=== PATIENT | female | born 1950 | race Caucasian/White ===

== ENCOUNTER → 2018-10-21 | Outpatient (CLI) | payer OTHER, MEDICARE | LOC: FIMAGING 13:27 | PROVIDERS: ATTEND Orthopaedic Surgery | DX: Z01.818 Encounter for other preprocedural examination (principal); M16.12 Unilateral primary osteoarthritis, left hip; M17.0 Bilateral primary osteoarthritis of knee ==

== ENCOUNTER 2018-11-06 08:09 | Inpatient (IN) | payer OTHER, MEDICARE ==
[~2018-11-06 08:09] MED LIST: BUPIVACAINE/EPI 0.5% 30 ML SDV ONE; POVIDONE-IODINE 20 ML in SODIUM CL IRRIG SOLUTION 500 ML IRR ONE; ROPIVACAINE 0.2% 80 MG, EPINEPHrine 0.2 MG, KETOROLAC TROMETHAMINE 30 MG in SYRINGE 0 ML IU ONE; TRANEXAMIC ACID 1,000 MG in NS 100 ML IV ONE
[2018-11-06] MEDS ORDERED: DEXAMETHASONE 4 MG/ML VIAL IVP ONE (08:27)
[2018-11-06] MEDS ORDERED: FAMOTIDINE 20 MG TAB PO ONE (08:27)
[2018-11-06] MEDS ORDERED: ceFAZolin 2 GM/DEXTROSE 100 ML IV ONE (08:27)
[2018-11-06] MEDS ORDERED: ACETAMINOPHEN 325 MG TAB PO ONE (08:27)
[2018-11-06] MEDS ORDERED: LR 1,000 ML IV ONE (08:28)
--- NOTE | 2018-11-06 09:36 | PDANEPAE ---
ANE History of Present Illness OA here for L LUNA ANE Past Medical History - Cardiovascular History Hx Hypertension: No Hx Arrhythmias: No Hx Chest Pain: No Hx Coronary Artery / Peripheral Vascular Disease: No Hx CHF / Valvular Disease: No Hx Palpitations: No - Pulmonary History Hx COPD: No Hx Asthma/Reactive Airway Disease: Yes Hx Recent Upper Respiratory Infection: No Hx Oxygen in Use at Home: No Hx Sleep Apnea: No Sleep Apnea Screening Result - Last Documented: Negative Pulmonary History Comment: ASTHMA TRIGGERS ARE URI. RECENT COUGH TREATED WITH ANTIBIOTIC FINISHED 10/16/18. ALLERGIC TO CATS AND DOG - Neurologic History Hx Cerebrovascular Accident: No Hx Seizures: No Hx Dementia: No - Endocrine History Hx Diabetes: No - Renal History Hx Renal Disorders: No - Liver History Hx Hepatic Disorders: No - Neurological & Psychiatric Hx Hx Neurological and Psychiatric Disorders: Yes Neurological / Psychiatric History Comment: DEPRESSION - Cancer History Hx Cancer: No - Congenital Disorder History Hx Congenital Disorders: No - GI History Hx Gastrointestinal Disorders: No - Other Health History Other Health History: UPPER FRONT TEETH HAVE VENEERS. OSTEOARTHRITIS - Chronic Pain History Chronic Pain: Yes (LT HIP) - Surgical History Prior Surgeries: TAMIKO BREAST AUGMENTATION ANE Review of Systems Review of Systems: - Exercise capacity METS (RN): 4 METS ANE Patient History - Allergies Allergies/Adverse Reactions: No Known Allergies Allergy (Verified 10/20/18 15:09) - Home Medications Home Medications: Venlafaxine Xr [Effexor Xr 75MG (*)] 75 mg PO DAILY 10/20/18 [Last Taken 07:30] lamoTRIgine [LamICTAL 100 MG (*)] 150 mg PO DAILY 10/20/18 [Last Taken 11/06/18 07:30] Albuterol [Proventil Inhaler HFA (*)] 1 - 2 puffs IH Q4H PRN 10/23/18 [Last Taken 1 Day Ago ~11/05/18] Beclomethasone Qvar 80 [Qvar 80 Redihaler (*)] 1 inh IH BID 10/23/18 [Last Taken 11/06/18 07:30] Herbals/Supplements -Info Only 1 each PO DAILY 10/23/18 [Last Taken 1 Week Ago ~ 10/30/18] Ibuprofen [Motrin (*)] 200 mg PO DAILY PRN 10/23/18 [Last Taken 2 Months Ago ~] Ascorbic Acid [Vitamin C 500 mg (*)] 500 mg PO DAILY 11/06/18 [Last Taken 1 Week Ago ~10/30/18] Cholecalciferol Vit D3 [Vitamin D3 (*)] 1,000 units PO DAILY 11/06/18 [Last Taken 1 Week Ago ~10/30/18] Vitamin B Complex [Vitamin B Complex (OTC)] 1 each PO DAILY 11/06/18 [Last Taken 1 Week Ago ~10/30/18] - NPO status NPO Status: no food or drink >8 hours NPO Since - Liquids (Date): 11/05/18 NPO Since - Liquids (Time): 22:00 NPO Since - Solids (Date): 11/05/18 NPO Since - Solids (Time): 22:00 - Anes Hx Anes Hx: no prior problems - Smoking Hx Smoking Status: Heavy smoker - Alcohol Use Alcohol Use: Rarely - Family Anes Hx Family Anes Hx: none ANE Labs/Vital Signs - Vital Signs Blood Pressure: 112/82 Heart Rate: 74 Respiratory Rate: 16 O2 Sat (%): 92 Height: 144.78 cm Weight: 54.885 kg ANE Physical Exam - Airway Neck exam: FROM Mallampati Score: Class 2 Mouth exam: normal dental/mouth exam - Pulmonary Pulmonary: no respiratory distress, clear to auscultation - Cardiovascular Cardiovascular: regular rate and rhythym, no murmur, rub, or gallop - ASA Status ASA Status: II ANE Anesthesia Plan Anesthesia Plan: GA with mask, spinal Total IV Anesthesia: Yes
--- NOTE | 2018-11-06 09:36 | PDHPUP ---
History & Physical Update H&P update statement: This history and physical update is based on an assessment of the patient which was completed after admission or registration (within 24 hours), but prior to the surgery/procedure. H&P update: H&P reviewed & patient examined, no change in patient's condition since H&P completed
[2018-11-06] MEDS ORDERED: MIDAZOLAM 2 MG/2 ML VIAL IVP ONE (09:39)
[2018-11-06] MEDS ORDERED: PROPOFOL/EMULSION 500 MG/50 ML BOTTLE IV ONE (09:43)
[2018-11-06] MEDS ORDERED: ALBUTEROL HFA ANES ONLY 200 PUFFS/8.5 GM MDI IH ONE (10:55)
[2018-11-06] MEDS ORDERED: PROPOFOL 200 MG/20 ML VIAL ONE (11:14)
[2018-11-06] MEDS ORDERED: DEXAMETHASONE 4 MG/ML VIAL ONE (11:15)
[2018-11-06] MEDS ORDERED: ONDANSETRON 4 MG/2 ML VIAL ONE (11:15)
[2018-11-06] MEDS ORDERED: PROMETHAZINE HCL 25 MG/ML INJ IVP PRN ×2 (12:07→12:15)
[2018-11-06] MEDS ORDERED: fentaNYL 100 MCG/2 ML INJ IVP PRN (12:07)
[2018-11-06] MEDS ORDERED: HYDROCODONE/APAP 5/325 TAB PO PRN (12:07)
[2018-11-06] MEDS ORDERED: ONDANSETRON 4 MG/2 ML VIAL IVP PRN ×2 (12:07→12:15)
[2018-11-06] MEDS ORDERED: ACETAMINOPHEN 500 MG TAB PO PRN (12:07)
[2018-11-06] MEDS ORDERED: oxyCODONE IR 5 MG TAB PO PRN (12:07)
[2018-11-06] MEDS ORDERED: HYDROmorphONE/DILAUDID 2 MG/ML INJ IVP PRN (12:07)
[2018-11-06] MEDS ORDERED: NALOXONE HCL 0.4 MG/ML INJ IVP PRN (12:07)
--- NOTE | 2018-11-06 12:09 | POSTANESTH ---
Post Anesthetic Evaluation Cardiovascular Status: Normal, Stable, Similar to Pre-Op Cond Respiratory Status: Normal, Stable, Similar to Pre-op Cond. Level of Consciousness/Mental Status: Can Participate in Eval, Mildly Sleepy, Arousable Pain Control: Adequate, Prn Tx Ordered Nausea/Vomiting Control: Adequate, Prn Tx Ordered Complications Possibly Related to Anesthesia: None Noted
[2018-11-06] MEDS ORDERED: diphenhydrAMINE 25 MG CAP PO PRN (12:15)
[2018-11-06] MEDS ORDERED: ONDANSETRON DISINTEGRATING 4 MG TAB PO PRN (12:15)
[2018-11-06] MEDS ORDERED: LACTULOSE 20 GM/30 ML UDCUP PO PRN (12:15)
[2018-11-06] MEDS ORDERED: POLYETHYLENE GLYCOL 3350 17 GM PKT PO PRN (12:15)
[2018-11-06] MEDS ORDERED: BISACODYL 10 MG SUPP PR PRN (12:15)
[2018-11-06] MEDS ORDERED: CYCLOBENZAPRINE 10 MG TAB PO PRN (12:15)
[2018-11-06] MEDS ORDERED: PROMETHAZINE HCL 25 MG SUPPR PR PRN (12:15)
[2018-11-06] MEDS ORDERED: TEMAZEPAM 15 MG CAP PO PRN (12:15)
[2018-11-06] MEDS ORDERED: MAGNESIUM HYDROXIDE 30 ML UDCUP PO PRN (12:15)
[2018-11-06] MEDS ORDERED: DIPHENOXYLATE/ATROPINE LOMOTIL 1 TAB PO PRN (12:15)
--- NOTE | 2018-11-06 12:15 | POSTOPPROG ---
Post Op Note Date of Operation: 11/06/18 Surgeon: Smith Denise [employer] Worker: SHERIF Gold Anesthesiologist: MD Montserrat Anesthesia: IV Sedation, Spinal Pre-op Diagnosis: Left hip OA Post-op Diagnosis: same Procedure: left anterior LUNA with DEE Inf/Abcess present in the surg proc area at time of surgery?: No EBL: 100-500 (300) Drains: Hemovac
[2018-11-06] MEDS ORDERED: ALBUTEROL 60 PUFFS/8 GM MDI IH PRN (12:18)
[2018-11-06] MEDS ORDERED: LR 1,000 ML IV SCH (12:30)
[2018-11-06] MEDS: oxyCODONE IR 5 MG TAB PO PRN ×3 (16:24→23:39)
--- NOTE | 2018-11-06 16:52 | PDMN ---
Medical Necessity Medical necessity: Pt meets IP criteria as of 11/06/2018 per and [facility] [id number] ( LUNA); Medicare IP only procedure.
[2018-11-06] MEDS: ACETAMINOPHEN 325 MG TAB PO SCH ×2 (17:55→23:39)
[2018-11-06] MEDS: ceFAZolin 2 GM/DEXTROSE 100 ML IV SCH (19:37)
[2018-11-06] MEDS: ASPIRIN 81 MG CHEWABLE TAB PO SCH (20:29)
[2018-11-06] MEDS: FAMOTIDINE 20 MG TAB PO SCH (20:29)
[2018-11-06] MEDS: SENNOSIDES/DOCUSATE SODIUM TAB PO SCH (20:29)
[2018-11-06] MEDS: BECLOMETHASONE QVAR 80 REDIHALER 120 INH/10.6 GM MDI IH SCH (22:21)
[2018-11-07] MEDS: ceFAZolin 2 GM/DEXTROSE 100 ML IV SCH (03:44)
[2018-11-07] MEDS: oxyCODONE IR 5 MG TAB PO PRN ×3 (05:27→12:13)
[2018-11-07] MEDS: ACETAMINOPHEN 325 MG TAB PO SCH (05:27)
--- NOTE | 2018-11-07 07:30 | SOAPPROG ---
SOAP Progress Note Assessment/Plan: Assessment:68-year-old female postop day 1 status post left anterior approach total hip with Louie Plan: Weight-bearing as tolerated, PT/OT DVT prophylaxis: SCDs, Etienne Hose, aspirin 81 mg twice daily Incentive spirometry 10 times per hour Disposition: Home after physical therapy this morning 11/07/18 07:28 Subjective: No acute events. Pain well controlled. Denies fevers chills nausea vomiting chest pain shortness of breath numbness or tingling Objective: Vital Signs Temp Pulse Resp BP Pulse Ox 36.8 C 77 15 99/59 L 91 L 11/07/18 04:00 11/07/18 04:00 11/07/18 04:00 11/07/18 04:00 11/07/18 04:00 Laboratory Results 11/07/18 05:06 11/06/18 11/07/18 11/08/18 05:59 05:59 05:59 Intake Total 3900 Output Total 1400 Balance 2500 Awake alert and oriented x3 No acute distress Easy nonlabored breathing Left thigh: Dressing clean dry intact no erythema drainage or signs of infection Mild swelling, no ecchymosis Thigh and calf compartments soft compressible Sensation intact to light touch L4-S1 Motor intact to EHL FHL tibialis anterior gastrocsoleus Palpable DP PT pulses - Pending Discharge Pending Discharge Within 24 Hours: Yes Pending Discharge Date: 11/07/18 Pending Discharge Time: 11:00 ICD10 Worksheet Patient Problems: Problems Problem Status Onset Osteoarthritis of left hip Acute
[2018-11-07] MEDS: BECLOMETHASONE QVAR 80 REDIHALER 120 INH/10.6 GM MDI IH SCH (07:54)
[2018-11-07] MEDS: ASPIRIN 81 MG CHEWABLE TAB PO SCH (07:55)
[2018-11-07] MEDS: SENNOSIDES/DOCUSATE SODIUM TAB PO SCH (07:55)
[2018-11-07] MEDS: FAMOTIDINE 20 MG TAB PO SCH (07:55)
[2018-11-07 08:22] VITALS: BP 101/62
[2018-11-07] MEDS ORDERED: VITAMIN B COMPLEX 1 EA CAP/TAB PO SCH (09:00)
[2018-11-07] MEDS ORDERED: CHOLECALCIFEROL VIT D3 1,000 UNITS TAB PO SCH (09:00)
[2018-11-07] MEDS ORDERED: ASCORBIC ACID 500 MG TAB PO SCH (09:00)
[2018-11-07] MEDS ORDERED: VENLAFAXINE XR 75 MG CAP PO SCH (09:00)
[2018-11-07] MEDS ORDERED: lamoTRIgine 100 MG TAB PO SCH (09:00)
--- NOTE | 2018-11-07 10:40 | ASMTCMCOM ---
CM Note CM Note Notes: Pt medically stable for d/c after planned hip surgery. No CM d/c needs identified. PT rec home/outpatient. Date Signed: 11/07/2018 10:40 AM Electronically Signed By:ROGELIO Weiner
--- NOTE | 2018-11-07 10:41 | ASMTLACE ---
LELAE Length of stay for Answers: 2 days current admission Acuity / Level of Answers: Yes Care: Did the patient have an inpatient admission? # of Emergency department Answers: 0 visits in the last 6 months Social determinants Answers: Mental health diagnosis (anxiety, depression, pers onality disorders, etc.) Score: 8 Date Signed: 11/07/2018 10:40 AM Electronically Signed By:ROGELIO Weiner
--- NOTE | 2018-11-12 14:28 | GOP ---
DATE OF OPERATION: 11/06/2018 SURGEON: Smith Denise MD JACK FRAME TENDER: Wenceslao Gold, CSFA, LSA. Agriculture Department Chair was required for the procedure due to the complexity of the case and patient's condition fo r position, prepping, draping, retracting, and closure. ANESTHESIA: Spinal and IV sedation. PREOPERATIVE DIAGNOSIS: Left hip osteoarthritis. POSTOPERATIVE DIAGNOSIS: Left hip osteoarthritis. PROCEDURE PERFORMED: Left hip anterior approach hip replacement with MAKOplasty robotic guidance, fl uoroscopic supervision, greater than 1 hour. FINDINGS: SPECIMENS: Femoral head. ESTIMATED BLOOD LOSS: 300 cc. INDICATIONS: Patient has severe hip osteoarthritis that failed to improve with conservative measures significantly affecting activities of daily living including walking. The patient elected to procee d with anterior approach hip replacement using MAKOplasty robotic guidance. After extensive discussi on of all possible approaches as well as the risks, benefits, pros, cons, expected recovery, and prog nosis, the patient verbalized understanding of the risks and benefits of the procedure and signed inf ormed consent prior to this procedure. DESCRIPTION OF PROCEDURE: The patient was seen in the holding area and operative consent and extremi ty were signed. The patient was then taken to the operating room. After a smooth induction of spina l anesthesia and sedation, the patient was placed in the supine position on the operating table with the arch table extension. Hip and contralateral iliac crest were prepped and draped in the usual nelson rile fashion. Operative site was confirmed by signature. Operative time-out was performed. Allergi es reviewed. Antibiotics and TXA administered. Three pins were placed in the contralateral iliac crest. The pelvic array was fixed. This was well visualized by the robot. The desired incision for the anterior approach to the hip was infiltrated w ith 0.25% Marcaine with epinephrine. The incision was made with a 10 blade, carried through the subc utaneous tissue and identified the TFL fascia. This was incised in line with the incision, and TFL w as retracted laterally. The lateral femoral circumflex vessels were coagulated with Aquamantys, and deep TFL fascia was incised with the vastus lateralis was clearly exposed. The precapsular fat was e xcised. A T-shaped capsulotomy was performed, and the capsule was preserved for later closure. The femoral checkpoint was fixed in the anterior greater trochanter femur. Express registration was completed. The femoral neck cut was then performed based on pre-templated calculations and imaging. The femoral head was excised with a corkscrew. The acetabulum was exposed in standard fashion. Lab rum, pulvinar, and soft tissue were excised sharply. The pelvic checkpoint was placed in the AIIS. Acetabular registration was performed using the robot. Reaming was then performed using the robot to the desired size. The cup was impacted into place again with the robotic guidance system. Good fix ation was achieved. The cup was irrigated and dried, and the liner was impacted into place achieving good locking within the cup. Femur was then exposed in standard fashion. The femur was broached to the desired size. A trial neck and head were attached, and the hip was relocated. The length and o ffset were confirmed using the robot. The position of all components was also confirmed at this poin t fluoroscopically. The foot was freed from the table, and stability was confirmed at 45 degrees of flexion with 30 degrees of internal rotation. The foot was secured back to the table, externally rot ated 90 degrees, extended group home down the floor, and stability was again confirmed. Hip was then di slocated, and the femoral trial components were removed, and the stem was impacted into place. The t runnion was cleaned and dried, and the head was impacted down into the trunnion. The wound was copio usly irrigated including the cup and the pulse lavage, and the hip was once again relocated. Compone nt placement was confirmed with fluoroscopy. All checkpoints were removed. The pelvic array was als o removed. The wound was copiously irrigated with sterile solution. Dilute Betadine solution was th en irrigated into the wound and allowed to soak for 3 minutes before being irrigated out. A joint co cktail was injected in the soft tissue and the indirect head of the rectus femoris was repaired with #1 Vicryl. The drain was placed exiting distally and laterally from deep to TFL. The wound was then closed in layers with 0 Quill in a TFL fashion, deep subcutaneous fat, 3-0 Versalok in the dermis. The wound was dressed with sterile dressings. Patient was safely awakened and taken to Recovery Room in stable condition. All critical portions of the procedure performed by myself, Dr. Denise. This operative note was create d by myself, and I was immediately available for emergency cross-coverage at all times. DRAINS: Hemovac x1. COMPLICATIONS: None. IMPLANTS: Includes a Trident II Tritanium acetabular shell size 46 mm with 0 degree, 32 mm polyethyl dexter insert, Accolade II size 2 stem 127 degree offset with a 32 mm +4 head. /[id number]/MODL
== END 2018-11-07 12:20 | disposition home or self-care (01) | DRG 470 ==
LOC: F3N 08:09
PROVIDERS: ADMIT Orthopaedic Surgery; ATTEND Orthopaedic Surgery
DX: M16.12 Unilateral primary osteoarthritis, left hip (principal)
CPT/HCPCS: 97110-GP; 97161-GP; 97165-GO; G8978-GP-CI; G8979-GP-CI; G8980-GP-CI; G8987-GO-CI; G8988-GO-CI; G8989-GO-CI; J0171; J0690; J1100; J1885; J2250; J2405; J2704; J2795